=== PATIENT | female | born 1970 | race Caucasian/White ===

== ENCOUNTER 2019-10-21 14:31 | Emergency (ER) | payer OTHER ==
[~2019-10-21] VITALS: Ht 167.6 cm; Wt 74.8 kg
[~2019-10-21 14:31] MED LIST: ALBU0.0912 IH; PRON INH
[2019-10-21 14:46] VITALS: BP 111/60
--- NOTE | 2019-10-21 15:07 | NUR ---
49 Y/O F C/C UPPER ABDOMINAL PAIN 8 X1 DAY; DIARRHEA X 1 WEEK; VOMITING X 2 DAYS. PER PT HAD OTC RX WITH NO RELIEF. ABLE TO TOLERATE FLUIDS. PT NKA. HX ASTHMA. NO RX. PER PT ALSO HAVING SORE THROAT/HEADACHE, PT ON LAX TWO WEEKS AGO. SIDE RAIL X1.
--- NOTE | 2019-10-21 15:20 | NUR ---
US AT BEDSIDE.
[2019-10-21] MEDS ORDERED: ONDANSETRON 4 MG ODT PO ONE (15:25)
[2019-10-21] MEDS ORDERED: FAMOTIDINE 20 MG TAB PO ONE (15:25)
--- NOTE | 2019-10-21 15:46 | NUR ---
LAB AT BEDSIDE
[2019-10-21 16:25] LABS: BASOPHILS # (AUTO) 0.1 K/uL (0.00-0.22); BASOPHILS % (AUTO) 0.5 % (0.0-2.0); EOSINOPHILS # (AUTO) 0.4 K/uL (0-0.4); EOSINOPHILS % (AUTO) 3.4 % (0.0-4.0); HEMATOCRIT 44.5 % (36-48); HEMOGLOBIN 14.7 g/dL (12.0-16.0); LYMPHOCYTES % (AUTO) 18.5 % (20.5-51.1); MEAN CORPUSCULAR HEMOGLOBIN 31 pg (27-31); MEAN CORPUSCULAR HGB CONC 33 g/dL (33-37); MEAN CORPUSCULAR VOLUME 91.9 fL (80-94); MONOCYTES # (AUTO) 0.6 K/uL (0.8-1.0); MONOCYTES % (AUTO) 5.5 % (1.7-9.3); NEUTROPHILS # (AUTO) 7.8 K/uL (1.8-7.7); NEUTROPHILS % (AUTO) 72.1 % (42.2-75.2); PLATELET COUNT (AUTO) 172 K/uL (140-450); RED BLOOD CELL COUNT(AUTO) 4.84 MIL/uL (4.20-5.40); RED CELL DISTRIBUTION WIDTH 13.2 % (11.6-13.7); WHITE BLOOD COUNT (AUTO) 10.7 K/uL (4.8-10.8)
[2019-10-21 16:56] LABS: ALBUMIN 3.7 g/dL (3.4-5.0); ANION GAP 11.4 (8-16); CARBON DIOXIDE 28.7 mmol/L (21-32); CREATININE 0.7 mg/dL (0.6-1.3); POTASSIUM 4.1 mmol/L (3.5-5.1); TOTAL BILIRUBIN 0.7 mg/dL (0.0-1.0)
--- NOTE | 2019-10-21 17:02 | NUR ---
pt. resting in bed. no further needs. will continue to monitor.
--- NOTE | 2019-10-21 17:16 | NUR ---
Patient discharged with v/s stable. Written and verbal after care instructions given and explained. Patient alert, oriented and verbalized understanding of instructions. Ambulatory with steady gait. All questions addressed prior to discharge. ID band removed. Patient advised to follow up with PMD. Rx of omeprazole and zofran given. Patient educated on indication of medication including possible reaction and side effects. Opportunity to ask questions provided and answered.
[2019-10-21 17:17] VITALS: BP 115/72
== END 2019-10-21 17:16 | disposition home or self-care (01) ==
LOC: MED 14:31
DX: K29.70 Gastritis, unspecified, without bleeding (principal); R51 Headache; J45.909 Unspecified asthma, uncomplicated; Z79.899 Other long term (current) drug therapy
CPT/HCPCS: 36415; 76705; 80053; 81002; 81025; 83690; 85025; 99284; Q0092; Q0162

== ENCOUNTER 2020-09-15 14:50 | Emergency (ER) | payer OTHER ==
[~2020-09-15] VITALS: Ht 167.6 cm; Wt 81.4 kg
[2020-09-15 14:59] VITALS: BP 113/85
--- NOTE | 2020-09-15 15:10 | NUR ---
Patient ambulated to bed 03 with steady gait.
[2020-09-15] MEDS ORDERED: ALBUTEROL HFA MDI 90 MCG/ACTUATION 8 GM INH ONE (16:15)
[2020-09-15] MEDS ORDERED: NACL 0.9% 1,000 ML IV ONE (16:15)
[2020-09-15] MEDS ORDERED: ACETAMINOPHEN 325 MG TAB PO ONE (16:15)
[2020-09-15] MEDS ORDERED: ASPIRIN 325 MG TAB PO ONE (16:15)
[2020-09-15 16:53] LABS: BASOPHILS % (AUTO) 0.6 % (0.0-2.0); EOSINOPHILS # (AUTO) 0.3 K/uL (0-0.4); EOSINOPHILS % (AUTO) 4.7 % (0.0-4.0); HEMATOCRIT 40.6 % (36-48); HEMOGLOBIN 13.6 g/dL (12.0-16.0); LYMPHOCYTES # (AUTO) 2.7 K/uL (2.5-16.5); MEAN CORPUSCULAR HEMOGLOBIN 29 pg (27-31); MEAN CORPUSCULAR HGB CONC 34 g/dL (33-37); MEAN CORPUSCULAR VOLUME 87.7 fL (80-94); MONOCYTES # (AUTO) 0.4 K/uL (0.8-1.0); NEUTROPHILS # (AUTO) 3.7 K/uL (1.8-7.7); NEUTROPHILS % (AUTO) 51.7 % (42.2-75.2); PLATELET COUNT (AUTO) 214 K/uL (140-450); RED BLOOD CELL COUNT(AUTO) 4.63 MIL/uL (4.20-5.40); RED CELL DISTRIBUTION WIDTH 13.7 % (11.6-13.7); WHITE BLOOD COUNT (AUTO) 7.2 K/uL (4.8-10.8)
[2020-09-15 17:07] LABS: PROTHROMBIN TIME 9.6 secs (10.8-13.4)
[2020-09-15 17:08] LABS: ALBUMIN 3.6 g/dL (3.4-5.0); ANION GAP 9.9 (8-16); CARBON DIOXIDE 29.3 mmol/L (21-32); CREATININE 0.8 mg/dL (0.6-1.3); POTASSIUM 4.2 mmol/L (3.5-5.1); TOTAL BILIRUBIN 0.5 mg/dL (0.0-1.0)
[2020-09-15 17:31] LABS: D-DIMER < 100 ng/ml (0-400)
[2020-09-15] MEDS ORDERED: predniSONE 20 MG TAB PO ONE (19:00)
--- NOTE | 2020-09-15 19:08 | NUR ---
hand off report rell to Inga WEBER for continuation of nursing care
--- NOTE | 2020-09-15 20:30 | NUR ---
Patient appears to be resting comfortably in bed. Vital Signs within normal limits. Respirations even and unlabored.
--- NOTE | 2020-09-15 21:00 | NUR ---
AMBULATED TO BR WITH STEADY GAIT. PT VOICES CONCERNS REGARDING COVID. EDUCATION GIVEN WITH REASSURANCE
[2020-09-15 22:08] VITALS: BP 118/72
--- NOTE | 2020-09-16 19:21 | NUR ---
LATE ENTRY--- 0.9% NS DISCONTINUED AT 2200
== END 2020-09-15 22:08 | disposition home or self-care (01) ==
LOC: MED 14:50
DX: U07.1 COVID-19 (principal); J45.909 Unspecified asthma, uncomplicated; E78.00 Pure hypercholesterolemia, unspecified; Z79.899 Other long term (current) drug therapy
CPT/HCPCS: 36415; 71045; 80053; 81002; 83880; 84484; 85025; 85379; 85610; 85730; 87426; 93005; 94664; 96360; 96361; 99285; J7030; J7512; U0003

== ENCOUNTER 2021-06-22 09:35 | Emergency (ER) | payer OTHER ==
[~2021-06-22] VITALS: Ht 167.6 cm; Wt 85.7 kg
[2021-06-22 09:43] VITALS: BP 106/66
--- NOTE | 2021-06-22 09:45 | NUR ---
PT AMBULATED TO ER BED 4 WITH A STEADY GAIT.
--- NOTE | 2021-06-22 09:53 | NUR ---
51 Y/O FEMALE C/O LOW BACK PAIN 9 DECRIBES SHARP NON-RADIATING S/P FALL X2HRS AT HOME. PT STATES +HEAD INJURY, DENIES LOC. DENIES FEVER/CHILLS. +N/V 1 TIME 15 AFTER FALL. 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 PMH: ASTHMA NKA
--- NOTE | 2021-06-22 09:57 | NUR ---
DR. RUVALCABA WITH PT FOR FURTHER EVALUATION.
[2021-06-22] MEDS ORDERED: HYDROcodone/APAP 5/325 MG 1 TAB TAB PO ONE (10:05)
[2021-06-22] MEDS ORDERED: KETOROLAC 30 MG/ML VIAL IM ONE (10:05)
[2021-06-22] MEDS ORDERED: diazePAM 5 MG TAB PO ONE (10:05)
--- NOTE | 2021-06-22 10:10 | NUR ---
PT TAKEN TO CT AND XR VIA [facility].
--- NOTE | 2021-06-22 10:25 | NUR ---
PT TAKEN TO ER BED 4 VIA [facility].
--- NOTE | 2021-06-22 10:26 | NUR ---
PT AMBULATED TO RESTROOM FOR UA COLLECTION.
[2021-06-22] MEDS ORDERED: LID5T TP (10:53)
[2021-06-22] MEDS ORDERED: NAPR-54 PO (10:53)
[2021-06-22 11:11] VITALS: BP 140/72
--- NOTE | 2021-06-22 11:12 | NUR ---
Patient discharged with v/s stable. Written and verbal after care instructions given HEAD INJURY AND LOW BACK STRAIN and explained. Patient alert, oriented and verbalized understanding of instructions. Ambulatory with steady gait. All questions addressed prior to discharge. ID band removed. Patient advised to follow up with PMD. Rx of LIDOCAINE AND NAPROXEN given. Patient educated on indication of medication including possible reaction and side effects. Opportunity to ask questions provided and answered.
== END 2021-06-22 11:11 | disposition home or self-care (01) ==
LOC: MED 09:35
DX: S39.012A Strain of muscle, fascia and tendon of lower back, initial encounter (principal); S09.90XA Unspecified injury of head, initial encounter; J45.909 Unspecified asthma, uncomplicated; Z79.899 Other long term (current) drug therapy; W07.XXXA Fall from chair, initial encounter; Y93.89 Activity, other specified; Y92.89 Other specified places as the place of occurrence of the external cause; Y99.8 Other external cause status
CPT/HCPCS: 70450; 72100; 81025; 96372; 99284; J1885

== ENCOUNTER 2021-08-17 09:08 | Emergency (ER) | payer OTHER ==
[~2021-08-17] VITALS: Ht 167.6 cm; Wt 85.3 kg
[~2021-08-17 09:08] MED LIST changes: +LID5T TP; +NAPR-54 PO
[2021-08-17 09:41] VITALS: BP 126/63
--- NOTE | 2021-08-17 10:07 | NUR ---
DR WANG EXAMINING PT
[2021-08-17] MEDS ORDERED: ONDANSETRON 4 MG ODT PO ONE (10:15)
[2021-08-17] MEDS ORDERED: KETOROLAC 60 MG/2 ML VIAL IM ONE (10:15)
[2021-08-17] MEDS ORDERED: NACL 0.9% 1,000 ML IV ONE (10:30)
[2021-08-17] MEDS ORDERED: ONDANSETRON 4 MG/2 ML VIAL IVP ONE (10:30)
[2021-08-17] MEDS ORDERED: KETOROLAC 15 MG/ML VIAL IVP ONE (10:30)
[2021-08-17] MEDS ORDERED: ACET-8386 PO (10:31)
[2021-08-17] MEDS ORDERED: ONDA8TAB87 PO (10:31)
[2021-08-17] MEDS ORDERED: CIPR500T4 PO (10:31)
--- NOTE | 2021-08-17 11:30 | NUR ---
51 y/o female c/o fever of 103.0 f that started last night, also c/o n/v/d, headache and bilateral ear pain. pt states pain is 10/10. took ibuprofen prior to arrival, some relief. skin pink/warm/dry. aa&ox4 with even and steady gait. lungs clear bl, hr even and regular. vss. patient positioned for comfort. hob elevated. bedrails up x2. bed down at lowest level. ermd made aware of pt status. pmh: asthma nka
--- NOTE | 2021-08-17 11:33 | NUR ---
Kenney ocampo in [facility] - 08/17/21 at 1133 by [email or web address] PT AMBULATED TO ER BED 3
--- NOTE | 2021-08-17 11:33 | NUR ---
PT AMBULATED TO RESTROOM FOR URINE SAMPLE
--- NOTE | 2021-08-17 12:15 | NUR ---
Patient discharged with v/s stable. Written and verbal after care instructions NAUSEA AND VOMITING, DIARRHEA, AND ABDOMINAL PAIN given and explained. Patient alert, oriented and verbalized understanding of instructions. Ambulatory with steady gait. All questions addressed prior to discharge. ID band removed. Patient advised to follow up with PMD. Rx of CIPRO, NORCO 5-325, AND ZOFRAN given. Patient educated on indication of medication including possible reaction and side effects. Opportunity to ask questions provided and answered.
== END 2021-08-17 12:15 | disposition home or self-care (01) ==
LOC: MED 09:08
DX: R11.2 Nausea with vomiting, unspecified (principal); Z20.822 Contact with and (suspected) exposure to COVID-19; R19.7 Diarrhea, unspecified; R10.9 Unspecified abdominal pain; J45.909 Unspecified asthma, uncomplicated; Z79.899 Other long term (current) drug therapy
CPT/HCPCS: 81002; 81025; 96374; 96375; 99284; J1885; J2405; J7030; U0003